=== PATIENT | female | born 1965 | race Caucasian/White ===

== ENCOUNTER → 2016-07-11 | Outpatient (CLI) | payer BC ==
--- NOTE | 2016-07-13 09:01 | MM ---
Reason for exam: screening (asymptomatic). Last mammogram was performed 1 year and 2 months ago. History: Family history of breast cancer in maternal grandmother at age 70. Physical Findings: Nurse did not find any significant physical abnormalities on exam. MG Screening Mammo w CAD Bilateral CC and MLO view(s) were taken. Prior study comparison: April 28, 2015, bilateral MG screening mammo w CAD. February 15, 2012, bilateral digital screening mammo w/CAD. The breast tissue is heterogeneously dense. This may lower the sensitivity of mammography. Stable calcifications in the right breast from 2014. No significant changes when compared with prior studies. ASSESSMENT: Benign, BI-RAD 2 RECOMMENDATION: Routine screening mammogram of both breasts in 1 year.
== END | disposition home or self-care (01) ==
LOC: RADMAMWWP 12:43
PROVIDERS: ATTEND Obstetrics & Gynecology
DX: Z12.31 Encounter for screening mammogram for malignant neoplasm of breast (principal); Z80.3 Family history of malignant neoplasm of breast

== ENCOUNTER → 2018-03-08 | Outpatient (CLI) | payer BC ==
--- NOTE | 2018-03-09 13:14 | MM ---
Reason for exam: screening (asymptomatic). Last mammogram was performed 1 year and 8 months ago. History: Family history of breast cancer in maternal grandmother at age 70. Physical Findings: A clinical breast exam by your physician is recommended on an annual basis and results should be correlated with mammographic findings. MG 3D Screening Mammo W/Cad Bilateral CC and MLO view(s) were taken. Prior study comparison: July 11, 2016, bilateral MG screening mammo w CAD. April 28, 2015, bilateral MG screening mammo w CAD. The breast tissue is heterogeneously dense. This may lower the sensitivity of mammography. There are stable scattered calcifications. There is no discrete abnormality. No significant changes when compared with prior studies. ASSESSMENT: Benign, BI-RAD 2 RECOMMENDATION: Routine screening mammogram of both breasts in 1 year.
== END | disposition home or self-care (01) ==
LOC: RADMAMWWP 10:58
PROVIDERS: ATTEND Obstetrics & Gynecology
DX: Z12.31 Encounter for screening mammogram for malignant neoplasm of breast (principal); Z80.3 Family history of malignant neoplasm of breast
CPT/HCPCS: 77063; 77067

== ENCOUNTER → 2019-05-21 | Outpatient (CLI) | payer BC ==
--- NOTE | 2019-05-23 10:17 | MM ---
Reason for exam: screening (asymptomatic). Last mammogram was performed 1 year and 2 months ago. History: Patient is postmenopausal. Family history of breast cancer in maternal grandmother at age 70. Taking estrogen for 3 months beginning at age 53. Taking progesterone for 3 months beginning at age 53. Physical Findings: A clinical breast exam by your physician is recommended on an annual basis and results should be correlated with mammographic findings. MG 3D Screening Mammo W/Cad Bilateral CC and MLO view(s) were taken. XCCL view(s) were taken of the right breast. Prior study comparison: March 08, 2018, bilateral MG 3d screening mammo w/cad. July 11, 2016, bilateral MG screening mammo w CAD. The breast tissue is heterogeneously dense. This may lower the sensitivity of mammography. No significant changes when compared with prior studies. ASSESSMENT: Benign, BI-RAD 2 RECOMMENDATION: Routine screening mammogram of both breasts in 1 year.
== END | disposition home or self-care (01) ==
LOC: RADMAMWWP 08:36
PROVIDERS: ATTEND Obstetrics & Gynecology
DX: Z12.31 Encounter for screening mammogram for malignant neoplasm of breast (principal); Z80.3 Family history of malignant neoplasm of breast
CPT/HCPCS: 77063; 77067

== ENCOUNTER 2020-03-03 16:26 | Emergency (ER) | payer BC ==
[2020-03-03 16:35] VITALS: TEMP 98
[2020-03-03] MEDS ORDERED: ONDANSETRON 4 MG/2 ML VIAL IVP STA (16:48)
[2020-03-03] MEDS ORDERED: diphenhydrAMINE 50 MG/ML 1 ML VIAL IVP STA (16:48)
[2020-03-03] MEDS ORDERED: KETOROLAC 15 MG/ML 1 ML VIAL IVP STA (16:48)
[2020-03-03] MEDS ORDERED: SODIUM CHLORIDE 0.9% 1,000 ML IV STA (16:48)
--- NOTE | 2020-03-03 16:50 | ED ---
General Adult HPI - General Chief complaint: Headache Stated complaint: Headache Time Seen by Provider: 03/03/20 16:43 Source: EMS Mode of arrival: EMS Limitations: no limitations - History of Present Illness Initial comments: Dictation was produced using tydy dictation software. please excuse any grammatical, word or spelling errors. This patient was cared for during a federal and state declared state of emergency secondary to Covid 19 Chief Complaint: 54-year-old female presents with headache History of Present Illness: Patient's 54-year-old female patient presents with an occipital headache. She states the pain is severe. She states pain acute in onset. She reports it is a worsening of her life. She states she is sensitive to light and sound. Patient denies any history of headaches. Denies any numbness signaling or weakness to the extremities. Denies any vision loss. The ROS documented in this emergency department record has been reviewed and confirmed by me. Those systems with pertinent positive or negative responses have been documented in the HPI. All other systems are other negative and/or noncontributory. PHYSICAL EXAM: General Impression: Alert and oriented x3, acute distress secondary to pain HEENT: Normocephalic atraumatic, extra-ocular movements intact, pupils equal and reactive to light bilaterally, mucous membranes moist. Cardiovascular: Heart regular rate and rhythm Chest: Able to complete full sentences, no retractions, no tachypnea Abdomen: abdomen soft, non-tender, non-distended, no organomegaly Musculoskeletal: Pulses present and equal in all extremities, no peripheral edema Motor: no focal deficits noted Neurological: CN II-XII grossly intact, no focal motor or sensory deficits noted Skin: Intact with no visualized rashes Psych: Normal affect and mood ED course: 54-year-old female presents with headache. Vital signs upon arrival are within acceptable limits. Patient is onset of symptoms. Approximate 45 minutes prior to arrival while she was at work. She does report that her pain is occipital. Computed tomography scan of brain is unremarkable. Patient given headache cocktail and observed in emergency department patient patient reevaluated after couple hours with significant improvement of symptoms. Patient is agreeable for discharge. - Related Data Home Medications Medication Instructions Recorded Confirmed No Known Home Medications 06/06/14 06/06/14 Allergies Allergy/AdvReac Type Severity Reaction Status Date / Time No Known Allergies Allergy Verified 01/23/15 11:33 Review of Systems ROS Statement: Those systems with pertinent positive or pertinent negative responses have been documented in the HPI. ROS Other: All systems not noted in ROS Statement are negative. Past Medical History Past Medical History: Thyroid Disorder History of Any Multi-Drug Resistant Organisms: None Reported Additional Past Surgical History / Comment(s): UTERINE ABLATION, D+C Past Psychological History: No Psychological Hx Reported Smoking Status: Never smoker Past Alcohol Use History: Occasional Past Drug Use History: None Reported General Exam Limitations: no limitations Course Vital Signs 03/03/20 03/03/20 16:31 17:56 Temperature 98.0 F Pulse Rate 62 68 Respiratory 18 18 Rate Blood Pressure 160/77 123/80 O2 Sat by Pulse 98 98 Oximetry Disposition Clinical Impression: Headache Disposition: HOME SELF-CARE Condition: Good Instructions (If sedation given, give patient instructions): Acute Headache (ED) Is patient prescribed a controlled substance at d/c from ED?: No Referrals: Roldan Rosa DO [Primary Care Provider] - 1-2 days Time of Disposition: 18:57
--- NOTE | 2020-03-03 17:14 | CT ---
EXAMINATION TYPE: CT brain wo con DATE OF EXAM: 03/03/2020 COMPARISON: None available. HISTORY: Headache CT DLP: 1099.4 mGycm Automated exposure control for dose reduction was used. FINDINGS: There is no intracranial hemorrhage, mass effect, midline shift or hydrocephalus. The ro-white diff erentiation is maintained. No calvarial fracture. The paranasal sinuses and mastoid air cells are fariba quately aerated. IMPRESSION: NORMAL HEAD CT.
[2020-03-03] MEDS ORDERED: DEXAMETHASONE SOD PHOSPHATE 10 MG/ML 1 ML VIAL IV STA (17:41)
[2020-03-03 18:58] VITALS: BP 132/74; PULSE 86; RESP 16
== END 2020-03-03 19:05 | disposition home or self-care (01) ==
LOC: EC 16:26
DX: R51.9 Headache, unspecified (principal)
CPT/HCPCS: 99284 ×2; 96374 ×2; 96375 ×4; 96361 ×2; 70450; J1200; J1100; J2405; J1885

== ENCOUNTER 2020-10-02 15:34 | Emergency (ER) | payer BC ==
[2020-10-02 16:34] VITALS: RESP 18; TEMP 97.8
[2020-10-02] MEDS ORDERED: MORPHINE SULFATE 4 MG/ML SYRINGE IV STA (18:05)
[2020-10-02] MEDS ORDERED: SODIUM CHLORIDE 0.9% 500 ML 500 ML IV STA (18:05)
[2020-10-02] MEDS ORDERED: MAG HYDROX/AL HYDROX/SIMETH 30 ML, HYOSCYAMINE ELIXIR 10 ML, LIDOCAINE VISCOUS 2% 10 ML PO STA ×3 (18:06)
[2020-10-02] MEDS ORDERED: PANTOPRAZOLE 40 MG/10 ML VIAL IVP STA (18:06)
--- NOTE | 2020-10-02 18:34 | ED ---
General Adult HPI - General Chief complaint: Chest Pain Stated complaint: SOB Time Seen by Provider: 10/02/20 17:59 Source: patient, RN notes reviewed, old records reviewed Mode of arrival: ambulatory Limitations: no limitations - History of Present Illness Initial comments: 54-year-old female presents for reevaluation of central chest pain. Patient was seen at outside hospital earlier this week, she had workup and was informed that this was related to likely gastric reflux. She was started on omeprazole at that time. She continues to have symptoms today. She describes this as a squeezing sensation lasting about 15 seconds, making every 5 minutes. No associated diaphoresis. No previous history of CAD. No vomiting. She states this is worse with lying flat and improved by sitting up. - Related Data Home Medications Medication Instructions Recorded Confirmed Mag Carb/Aluminum Hydrox/Algin 10 - 20 ml PO HS 10/02/20 10/02/20 [Gaviscon Liquid] Omeprazole 20 mg PO BID 10/02/20 10/02/20 Progesterone, Micronized 200 mg PO DAILY 10/02/20 10/02/20 [Progesterone] Thyroid,Pork [Magnetic Prospecting Supervisor Thyroid] 90 mg PO DAILY 10/02/20 10/02/20 estradioL [estradioL (Twice 1 patch TRANSDERM Q3D 10/02/20 10/02/20 Weekly) 0.1 mg Patch] Allergies Allergy/AdvReac Type Severity Reaction Status Date / Time No Known Allergies Allergy Verified 10/02/20 20:14 Review of Systems ROS Statement: Those systems with pertinent positive or pertinent negative responses have been documented in the HPI. ROS Other: All systems not noted in ROS Statement are negative. Past Medical History Past Medical History: Thyroid Disorder History of Any Multi-Drug Resistant Organisms: None Reported Additional Past Surgical History / Comment(s): UTERINE ABLATION, D+C Past Psychological History: No Psychological Hx Reported Smoking Status: Never smoker Past Alcohol Use History: Occasional Past Drug Use History: None Reported General Exam Limitations: no limitations General appearance: alert, in no apparent distress Head exam: Present: atraumatic, normocephalic Eye exam: Present: normal appearance, PERRL ENT exam: Present: normal exam Neck exam: Present: normal inspection. Absent: tenderness, meningismus Respiratory exam: Present: normal lung sounds bilaterally. Absent: respiratory distress, wheezes Cardiovascular Exam: Present: regular rate, normal rhythm GI/Abdominal exam: Present: soft. Absent: distended, tenderness, guarding Extremities exam: Present: normal inspection, normal capillary refill. Absent: pedal edema, calf tenderness Neurological exam: Present: alert, oriented X3, CN II-XII intact. Absent: motor sensory deficit Psychiatric exam: Present: normal affect, normal mood Skin exam: Present: warm, dry, intact, cyanosis, diaphoretic Course Vital Signs 10/02/20 10/02/20 16:29 20:21 Temperature 97.8 F Pulse Rate 56 L 70 Respiratory 18 18 Rate Blood Pressure 134/81 109/77 O2 Sat by Pulse 97 95 Oximetry EKG Findings - EKG Comments: EKG Findings:: EKG: Sinus bradycardia with sinus arrhythmia, left atrial enlargement, rate of 56, ND interval 166, QRS duration 96, QTC [address] segment elevation Medical Decision Making - Medical Decision Making 54-year-old female, repeat visit for chest pain. EKG is sinus rhythm without ST segment elevation. There does appear to be a component of reflux given the history. Possible esophageal spasm. She had normal x-ray performed at [facility] emergency department. She has a normal CBC, CMP showing a mild hypokalemia at 11.2, negative troponin. She has a low TSH, normal T3 and T4. I did plan to place this patient observation for serial cardiac enzymes, telemetry, cardiology and gastroenterology consultation. Patient states she is certain this is not her heart and has an outpatient follow-up with gastroenterology on [facility] is less than one week away. She's given strict return parameters. Patient eager for discharge. - Lab Data Result diagrams: 10/02/20 18:29 10/02/20 18:29 Lab Results 10/02/20 10/02/20 10/02/20 Range/Units 18:29 18:29 18:29 WBC 8.7 (3.8-10.6) k/uL RBC 4.98 (3.80-5.40) m/uL Hgb 14.6 (11.4-16.0) gm/dL Hct 42.8 (34.0-46.0) % MCV 86.0 (80.0-100.0) fL MCH 29.4 (25.0-35.0) pg MCHC 34.2 (31.0-37.0) g/dL RDW 12.4 (11.5-15.5) % Plt Count 285 (150-450) k/uL MPV 7.0 Neutrophils % 55 % Lymphocytes % 35 % Monocytes % 6 % Eosinophils % 2 % Basophils % 1 % Neutrophils # 4.8 (1.3-7.7) k/uL Lymphocytes # 3.1 (1.0-4.8) k/uL Monocytes # 0.6 (0-1.0) k/uL Eosinophils # 0.2 (0-0.7) k/uL Basophils # 0.0 (0-0.2) k/uL PT 10.3 (9.0-12.0) sec INR 1.0 (<1.2) APTT 22.2 (22.0-30.0) sec Sodium 140 (137-145) mmol/L Potassium 4.5 (3.5-5.1) mmol/L Chloride 107 (98-107) mmol/L Carbon Dioxide 27 (22-30) mmol/L Anion Gap 6 mmol/L BUN 21 H (7-17) mg/dL Creatinine 0.80 (0.52-1.04) mg/dL Est GFR (CKD-EPI)AfAm >90 (>60 ml/min/1.73 sqM) Est GFR (CKD-EPI)NonAf 85 (>60 ml/min/1.73 sqM) Glucose 87 (74-99) mg/dL Calcium 11.2 H (8.4-10.2) mg/dL Magnesium 2.1 (1.6-2.3) mg/dL Total Bilirubin 1.1 (0.2-1.3) mg/dL AST 27 (14-36) U/L ALT 31 (4-34) U/L Alkaline Phosphatase 89 (38-126) U/L Troponin I (0.000-0.034) ng/mL NT-Pro-B Natriuret Pep pg/mL Total Protein 7.5 (6.3-8.2) g/dL Albumin 4.7 (3.5-5.0) g/dL Lipase 95 (23-300) U/L TSH 0.150 L (0.465-4.680) mIU/L Free T4 (0.78-2.19) ng/dL Free T3 pg/mL (2.8-5.3) pg/ml 10/02/20 10/02/20 10/02/20 Range/Units 18:29 18:29 18:29 WBC (3.8-10.6) k/uL RBC (3.80-5.40) m/uL Hgb (11.4-16.0) gm/dL Hct (34.0-46.0) % MCV (80.0-100.0) fL MCH (25.0-35.0) pg MCHC (31.0-37.0) g/dL RDW (11.5-15.5) % Plt Count (150-450) k/uL MPV Neutrophils % % Lymphocytes % % Monocytes % % Eosinophils % % Basophils % % Neutrophils # (1.3-7.7) k/uL Lymphocytes # (1.0-4.8) k/uL Monocytes # (0-1.0) k/uL Eosinophils # (0-0.7) k/uL Basophils # (0-0.2) k/uL PT (9.0-12.0) sec INR (<1.2) APTT (22.0-30.0) sec Sodium (137-145) mmol/L Potassium (3.5-5.1) mmol/L Chloride (98-107) mmol/L Carbon Dioxide (22-30) mmol/L Anion Gap mmol/L BUN (7-17) mg/dL Creatinine (0.52-1.04) mg/dL Est GFR (CKD-EPI)AfAm (>60 ml/min/1.73 sqM) Est GFR (CKD-EPI)NonAf (>60 ml/min/1.73 sqM) Glucose (74-99) mg/dL Calcium (8.4-10.2) mg/dL Magnesium (1.6-2.3) mg/dL Total Bilirubin (0.2-1.3) mg/dL AST (14-36) U/L ALT (4-34) U/L Alkaline Phosphatase (38-126) U/L Troponin I <0.012 (0.000-0.034) ng/mL NT-Pro-B Natriuret Pep 36 pg/mL Total Protein (6.3-8.2) g/dL Albumin (3.5-5.0) g/dL Lipase (23-300) U/L TSH (0.465-4.680) mIU/L Free T4 0.97 (0.78-2.19) ng/dL Free T3 pg/mL 4.4 (2.8-5.3) pg/ml Disposition Clinical Impression: Chest pain Disposition: HOME SELF-CARE Condition: Good Instructions (If sedation given, give patient instructions): Chest Pain (ED) Is patient prescribed a controlled substance at d/c from ED?: No Referrals: Roldan Rosa DO [Primary Care Provider] - 1-2 days Lenore Benitez MD [STAFF PHYSICIAN] - 1-2 days Cris Acuna MD [STAFF PHYSICIAN] - 1-2 days Time of Disposition: 21:03
[2020-10-02 18:39] LABS: Basophils % (A) 1 %; Eosinophils # (A) 0.2 k/uL (0-0.7); Eosinophils % (A) 2 %; HCT 42.8 % (34.0-46.0); HGB 14.6 gm/dL (11.4-16.0); Lymphocytes # (A) 3.1 k/uL (1.0-4.8); Lymphocytes % (A) 35 %; MCH 29.4 pg (25.0-35.0); MCHC 34.2 g/dL (31.0-37.0); Monocytes # (A) 0.6 k/uL (0-1.0); Monocytes % (A) 6 %; Neutrophils # (A) 4.8 k/uL (1.3-7.7); Neutrophils % (A) 55 %; Platelet Count 285 k/uL (150-450); RBC 4.98 m/uL (3.80-5.40); RDW 12.4 % (11.5-15.5); WBC 8.7 k/uL (3.8-10.6)
[2020-10-02 18:47] LABS: Potassium 4.5 mmol/L (3.5-5.1)
[2020-10-02 18:48] LABS: ALT 31 U/L (4-34); AST 27 U/L (14-36); African American GFR (CKD) >90 (>60 ml/min/1.73 sqM); Albumin 4.7 g/dL (3.5-5.0); Alkaline Phosphatase 89 U/L (38-126); Anion Gap 6 mmol/L; Blood Urea Nitrogen 21 mg/dL (7-17); Calcium 11.2 mg/dL (8.4-10.2); Carbon Dioxide 27 mmol/L (22-30); Chloride 107 mmol/L (98-107); Glucose 87 mg/dL (74-99); Lipase 95 U/L (23-300); Magnesium 2.1 mg/dL (1.6-2.3); Non-African American GFR(CKD) 85 (>60 ml/min/1.73 sqM); Sodium 140 mmol/L (137-145); Total Bilirubin 1.1 mg/dL (0.2-1.3); Total Protein 7.5 g/dL (6.3-8.2)
[2020-10-02 19:08] LABS: Partial Thromboplastin Time 22.2 sec (22.0-30.0); Prothrombin Time 10.3 sec (9.0-12.0)
[2020-10-02 20:39] LABS: T4, Free (Free Thyroxine) 0.97 ng/dL (0.78-2.19)
[2020-10-02 21:21] VITALS: BP 122/57; PULSE 71
== END 2020-10-02 21:24 | disposition home or self-care (01) ==
LOC: EC 15:34
DX: R07.9 Chest pain, unspecified (principal)
CPT/HCPCS: 36415; 93005; 84439; 84481; 83880; 80053; 83690; 83735; 84443; 84484; 85025; 85610; 85730; 99285; 96374; 96361 ×3; C9113

== ENCOUNTER → 2020-12-21 | Outpatient (CLI) | payer BC ==
--- NOTE | 2020-12-23 10:03 | MM ---
Reason for exam: screening (asymptomatic). Last mammogram was performed 1 year and 7 months ago. History: Patient is postmenopausal. Family history of breast cancer in maternal grandmother at age 70. Took estrogen for 3 months beginning at age 53. Took progesterone for 3 months beginning at age 53. Physical Findings: A clinical breast exam by your physician is recommended on an annual basis and results should be correlated with mammographic findings. MG 3D Screening Mammo W/Cad Bilateral CC and MLO view(s) were taken. Prior study comparison: May 21, 2019, bilateral MG 3d screening mammo w/cad. March 08, 2018, bilateral MG 3d screening mammo w/cad. April 28, 2015, bilateral MG screening mammo w CAD. The breast tissue is heterogeneously dense. This may lower the sensitivity of mammography. Finding: There are intermediate concern, suspicious grouped/clustered calcifications in the lower outer quadrant, posterior position of the right breast 9cm from the nipple. New finding since May 21, 2019, March 08, 2018, and April 28, 2015. ASSESSMENT: Incomplete: need additional imaging evaluation, BI-RAD 0 RECOMMENDATION: Special view mammogram of the right breast. [facility] will attempt to contact patient to return for supplemental views.
== END | disposition home or self-care (01) ==
LOC: RADMAMWWP 14:50
PROVIDERS: ATTEND Obstetrics & Gynecology
DX: Z12.31 Encounter for screening mammogram for malignant neoplasm of breast (principal); Z78.0 Asymptomatic menopausal state; Z80.3 Family history of malignant neoplasm of breast
CPT/HCPCS: 77063; 77067

== ENCOUNTER → 2020-12-30 | Outpatient (CLI) | payer BC ==
--- NOTE | 2020-12-31 08:57 | MM ---
Reason for exam: additional evaluation requested from abnormal screening. Last mammogram was performed less than 1 month ago. History: Patient is postmenopausal. Family history of breast cancer in maternal grandmother at age 70. Took estrogen for 3 months beginning at age 53. Took progesterone for 3 months beginning at age 53. Physical Findings: Nurse did not find any significant physical abnormalities on exam. MG 3D Work Up W/Cad RT CC with magnification, LM with magnification, and LM view(s) were taken of the right breast. Prior study comparison: December 21, 2020, bilateral MG 3d screening mammo w/cad. May 21, 2019, bilateral MG 3d screening mammo w/cad. Increasing indeterminate calcifications upper outer right breast. Tissue biospy recommended. This finding is changed when compared with previous exams. These results were verbally communicated with the patient and result sheet given to the patient on 12/30/20. ASSESSMENT: Suspicious, BI-RAD 4 RECOMMENDATION: Stereotactic core biopsy of the right breast. Called Dr. Goodrich's office with mammographic findings and has scheduled an appointment for the patient for 01/21/21 at 11:[address] Crouch. Biopsy scheduled for 01/01/21 at 8:00. PRELIMINARY REPORT CALLED AND FAXED TO DR. CROUCH ON 12/31/20.
== END | disposition home or self-care (01) ==
LOC: RADMAMWWP 10:25
PROVIDERS: ATTEND Obstetrics & Gynecology
DX: R92.1 Mammographic calcification found on diagnostic imaging of breast (principal); Z78.0 Asymptomatic menopausal state; Z80.3 Family history of malignant neoplasm of breast
CPT/HCPCS: 77061; 77065

== ENCOUNTER → 2021-01-01 | Day surgery (SDC) | payer BC ==
[2021-01-01 07:36] VITALS: RESP 16; TEMP 98
[2021-01-01 08:43] VITALS: BP 127/80; PULSE 58
--- NOTE | 2021-01-01 09:21 | MM ---
EXAMINATION TYPE: MG stereo VAD BX RT DATE OF EXAM: 01/01/2021 COMPARISON: Prior mammogram December 30, 2020 study CLINICAL HISTORY: Abnormal mammogram, suspicious microcalcifications TECHNIQUE: Stereotactic guided core biopsy of right breast. FINDINGS: The procedure of stereotactic guided core biopsy was explained to the patient. Benefits, alternatives, and risks were discussed. An informed consent was then obtained. [facility] Shortness pathway was lateral approach. I performed the localization and then performed the remainder of the procedure. Overlying skin is cleansed with Betadine. Lidocaine is used as anesthetic into the skin and deep tissues. Lidocaine with epinephrine is used as anesthetic into deeper tissue. A vacuum assisted biopsy gun was used to obtain multiple core samples. The patient tolerated the procedure well without any immediate complication. The patient was kept in the radiology department for short stay after the procedure and then discharged home in stable condition. Targeted calcifications are identified in specimen mammogram. Post biopsy mammogram shows the clip to appear in satisfactory position relative to the targeted area of concern on the preprocedure images. IMPRESSION: SUCCESSFUL, UNCOMPLICATED STEREOTACTIC GUIDED CORE BIOPSY OF AREA OF CONCERN IN THE RIGHT BREAST, FULL PATHOLOGY RESULTS TO FOLLOW. Low to intermediate index of suspicion noted at time of procedure. Pathology Results: High Risk RIGHT BREAST, STEREOTACTIC CORE BIOPSY: Focal flat epithelial atypia and atypical ductal hyperplasia (FEA/ADH) in a background of fibrocystic changes including calcifications and calcium oxalate crystals. See note. Recommendation Surgical consult of the right breast. BAILEY
== END ==
LOC: RADMAMWWP 07:07
PROVIDERS: ATTEND Surgery
DX: R92.8 Other abnormal and inconclusive findings on diagnostic imaging of breast (principal); R92.1 Mammographic calcification found on diagnostic imaging of breast
CPT/HCPCS: 19081; 88305; 88342; A4648; J2001

== ENCOUNTER 2021-02-04 11:07 | Day surgery (SDC) | payer BC ==
[2021-02-03 11:35] VITALS: BMI 28.2
[~2021-02-04 11:07] MED LIST: ACETAMINOPHEN TAB 500 MG TAB PO PRN; HEPARIN SODIUM,PORCINE/PF 5,000 UNIT/0.5 ML SYRINGE SQ PRN; Pre Op ABX Message 1 EACH MISC MISCELLANE ONE
[2021-02-04] MEDS ORDERED: LIDOCAINE 1% (10MG/ML) FOR IV START INTRADERMA ONE (11:35)
[2021-02-04] MEDS ORDERED: LACTATED RINGERS 1,000 ML IV ONE (11:40)
[2021-02-04] MEDS ORDERED: ALPRAZolam 0.5 MG TAB ONE (11:53)
[2021-02-04 12:11] VITALS: TEMP 98
[2021-02-04] MEDS ORDERED: LIDOCAINE 1% INJ 10MG/ML (20 ML MDV) SQ ONE (12:16)
[2021-02-04] MEDS ORDERED: ONDANSETRON 4 MG/2 ML VIAL ONE (13:19)
[2021-02-04] MEDS ORDERED: DEXAMETHASONE SOD PHOSPHATE 4 MG/ML 1 ML VIAL IVP ONE (13:23)
[2021-02-04] MEDS ORDERED: MIDAZOLAM 2 MG/2 ML VIAL ONE (14:02)
[2021-02-04] MEDS ORDERED: PROPOFOL 10 MG/ML 20 ML VIAL IV ONE (14:02)
[2021-02-04] MEDS ORDERED: fentaNYL (PF) 50 MCG/ML 2 ML AMP ONE (14:02)
[2021-02-04] MEDS ORDERED: KETAMINE 10 MG/ML 20 ML VIAL ONE (14:02)
[2021-02-04] MEDS ORDERED: SODIUM CHLORIDE 0.9% 100 ML with ceFAZolin 2,000 MG IV ONE ×2 (14:23)
[2021-02-04] MEDS ORDERED: BUPIVACAIN-EPI 0.25%-1:200,000 30 ML VIAL SQ ONE ×2 (14:24)
[2021-02-04] MEDS ORDERED: NALOXONE 0.4 MG/ML 1 ML VIAL IV PRN (15:12)
[2021-02-04] MEDS ORDERED: traMADol 50 MG TAB PO PRN (15:12)
--- NOTE | 2021-02-04 15:16 | P.OP ---
Date of Procedure: 02/04/21 Procedure(s) Performed: PREOPERATIVE DIAGNOSIS: Abnormal right mammogram POSTOPERATIVE DIAGNOSIS: Same PROCEDURE: Right Breast wire localization biopsy SURGEON: Miko EBL: Minimal ANESTHESIA: Sedation plus local COMPLICATIONS: None OPERATIVE PROCEDURE: Patient was placed on the operating room table in the s upine position. The patient's breast was prepped and draped in usual sterile fashion. A curvilinear incision was made adjacent to the wire entrance site. I followed the wire down into the breast tissue. The tip of the wire was quite a distance beyond the clip. The breast tissue around the wire was excised and I approached the wire beyond where I believed the clip was present. The tissue beyond our specimen was a little bit indurated and for that reason I took an additional small portion of tissue there. A specimen radiograph was performed on this area after it was painted the appropriate colors. The new piece was also painted the appropriate colors. The specimen radiograph confirmed the clip to be in what appeared to represent the smaller more medial portion. The subcutaneous tissues were inspected. No bleeding was seen. The subcutaneous tissues were closed using 3-0 Vicryl sutures. The skin was closed using a running 4-0 Monocryl stitch. Skin glue and sterile dressings were applied. DISPOSITION: Stable to recovery room
[2021-02-04] MEDS ORDERED: traMADol 50 MG TAB PO ONE (16:05)
[2021-02-04 16:40] VITALS: BP 119/71; PULSE 56; RESP 18
--- NOTE | 2021-02-05 14:25 | MM ---
EXAMINATION TYPE: MG surgical specimen RT, MG pre op needle loc RT DATE OF EXAM: 02/04/2021 COMPARISON: Mammogram 01/01/2021, 12/30/2020 HISTORY: Abnormal breast biopsy, abnormal mammogram, high risk lesion PROCEDURE: Maximal barrier technique is utilized. The skin overlying a suitable path to the patient's indwellin g clip marker in the upper outer right breast was localized using x-ray guidance. The skin was prep ped and Lidocaine used for local anesthesia. A 20-gauge needle was advanced to the level of the mass using x-ray guidance and a wire deployed. Needle was removed and hemostasis achieved. The patient remained in stable condition. Image obtained verified placement of the wire. Post procedural specimen radiograph shows the clip and the wire to be present. IMPRESSION: Successful x-ray guided wire localization of this patient's breast biopsy clip. This pr ocedure performed by the undersigned.
== END 2021-02-04 16:41 | disposition home or self-care (01) ==
LOC: OR 11:07
PROVIDERS: ATTEND Surgery
DX: N60.91 Unspecified benign mammary dysplasia of right breast (principal); E07.9 Disorder of thyroid, unspecified; K21.9 Gastro-esophageal reflux disease without esophagitis; Z79.890 Hormone replacement therapy; Z79.899 Other long term (current) drug therapy; Z79.01 Long term (current) use of anticoagulants; Z86.718 Personal history of other venous thrombosis and embolism
CPT/HCPCS: 19125; 81025; 76098; 19281; C1819; J2250; J1100; J2405; J0690; J2001; J3010; J2704; J1644; 88307

== ENCOUNTER → 2021-08-09 | Outpatient (CLI) | payer BC ==
--- NOTE | 2021-08-10 08:36 | MM ---
Reason for exam: follow-up at short interval from prior study. Last mammogram was performed 7 months ago. History: Patient is postmenopausal and has history of high-risk lesion on a previous biopsy at age 55. Family history of breast cancer in maternal grandmother at age 70. MG pre op needle loc RT of the right breast, February 04, 2021. High risk MG stereo VAD BX RT of the right breast, January 01, 2021. Took estrogen for 3 months beginning at age 53. Took progesterone for 3 months beginning at age 53. Physical Findings: A clinical breast exam by your physician is recommended on an annual basis and results should be correlated with mammographic findings. MG 3D Diag Mammo W/Cad RT CC, MLO, XCCL, LM, CC with magnification, LM with magnification, and ML with magnification view(s) were taken of the right breast. Prior study comparison: December 30, 2020, right breast MG 3d work up w/cad RT. December 21, 2020, bilateral MG 3d screening mammo w/cad. The breast tissue is heterogeneously dense. This may lower the sensitivity of mammography. Post excisional changes. 11-12 o'clock anterior right calcifications increased, biopsy recommended. Far posterior and lateral grouped calcifications also suspicious on magnification CC and XCCL views. On XCCL 3D, they are inferior to the clips 9 o'clock on the magnification ML view. ASSESSMENT: Suspicious, BI-RAD 4 RECOMMENDATION: Stereotactic core biopsy of the right breast. (2 site) Called Dr. Crouch's office with mammographic findings. 3D biospy required, Dr. Crouch's office notified and will contact [facility] to scheduled 3D biopsy. PRELIMINARY REPORT CALLED AND FAXED TO DR. CROUCH ON 08/10/21.
== END | disposition home or self-care (01) ==
LOC: RADMAMWWP 10:53
PROVIDERS: ATTEND Surgery
DX: R92.8 Other abnormal and inconclusive findings on diagnostic imaging of breast (principal); Z78.0 Asymptomatic menopausal state; Z80.3 Family history of malignant neoplasm of breast
CPT/HCPCS: 77061; 77065

== ENCOUNTER 2021-08-23 16:00 | Emergency (ER) | payer BC ==
[2021-08-23 16:12] VITALS: RESP 18; TEMP 97.6
[2021-08-23] MEDS ORDERED: SODIUM CHLORIDE 0.9% 500 ML 500 ML IV ONE (16:30)
[2021-08-23] MEDS ORDERED: HYDROmorphone 0.5 MG/0.5 ML SYRINGE IVP STA ×2 (16:30→19:09)
[2021-08-23] MEDS ORDERED: METOCLOPRAMIDE 5 MG/ML 2 ML VIAL IVP STA (16:31)
[2021-08-23] MEDS ORDERED: diphenhydrAMINE 50 MG/ML 1 ML VIAL IVP STA (16:31)
--- NOTE | 2021-08-23 17:05 | CT ---
EXAMINATION TYPE: CT brain wo con DATE OF EXAM: 08/23/2021 COMPARISON: 03/03/2020 HISTORY: Headache CT DLP: 1025.4 mGycm Automated exposure control for dose reduction was used. Ventricles and sulci appear normal. There is no mass effect or midline shift. There is no sign of int racranial hemorrhage. The calvarium is intact. There is normal aeration of the mastoid sinuses. There is no evidence of cerebral edema. IMPRESSION: Negative unenhanced head CT scan
--- NOTE | 2021-08-23 17:23 | ED ---
General Adult HPI - General Chief complaint: Headache Stated complaint: Headache Time Seen by Provider: 08/23/21 16:18 Source: patient, police, RN notes reviewed, old records reviewed Mode of arrival: ambulatory - History of Present Illness Initial comments: 55-year-old female presenting for evaluation of headache. Patient states she was on a web meeting and developed a right frontal headache. She does have history of migraine headaches and states is similar to headaches in the past although was more acute in onset. She reports photophobia. No focal numbness or weakness. No vomiting. Headache began about 2 hours prior to arrival. She does have previous headache history. - Related Data Home Medications Medication Instructions Recorded Confirmed Levothyroxine Sodium [Synthroid] 100 mcg PO DAILY 08/23/21 08/23/21 Promethazine HCl 12.5 mg PO BID PRN 08/23/21 08/23/21 oxyCODONE-APAP 5-325MG [Percocet 1 tab PO Q4HR PRN 08/23/21 08/23/21 5-325 mg] Allergies Allergy/AdvReac Type Severity Reaction Status Date / Time No Known Allergies Allergy Verified 08/23/21 16:12 Review of Systems ROS Statement: Those systems with pertinent positive or pertinent negative responses have been documented in the HPI. ROS Other: All systems not noted in ROS Statement are negative. 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 Past Anesthesia/Blood Transfusion Reactions: No Reported Reaction Past Psychological History: No Psychological Hx Reported Smoking Status: Never smoker Past Alcohol Use History: Occasional Past Drug Use History: None Reported - Past Family History Father Family Medical History: Deep Vein Thrombosis (DVT) General Exam General appearance: alert, in no apparent distress Head exam: Present: atraumatic, normocephalic Eye exam: Present: normal appearance, PERRL ENT exam: Present: normal exam Neck exam: Present: normal inspection. Absent: tenderness, meningismus Respiratory exam: Present: normal lung sounds bilaterally. Absent: respiratory distress, wheezes, rales Cardiovascular Exam: Present: regular rate, normal rhythm GI/Abdominal exam: Present: soft. Absent: distended, tenderness, guarding Extremities exam: Present: normal inspection, normal capillary refill Neurological exam: Present: alert, oriented X3, CN II-XII intact. Absent: motor sensory deficit Psychiatric exam: Present: normal affect, normal mood Skin exam: Present: warm, dry, intact. Absent: cyanosis, diaphoretic Course Vital Signs 08/23/21 08/23/21 08/23/21 16:09 16:51 17:50 Temperature 97.6 F Pulse Rate 52 L 67 62 Respiratory 18 18 18 Rate Blood Pressure 152/81 155/84 130/57 O2 Sat by Pulse 96 98 96 Oximetry - Reevaluation(s) Reevaluation #1: 08/23/21 21:13 Patient's headache significantly improved. Medical Decision Making - Medical Decision Making 55-year-old female presented with acute headache. Patient describes a right frontal headache with vision changes and photophobia. Head CT is ordered to rule out acute intracranial hemorrhage. This was obtained within 2-1/2 hours of headache onset. This was negative for intracranial hemorrhage or mass effect. I did obtain CT angiography to rule out subarachnoid hemorrhage, this is negative. Laboratory testing is unremarkable. Patient feeling better, given referral to primary care. Return parameters discussed. - Lab Data Result diagrams: 08/23/21 17:46 08/23/21 17:46 Lab Results 08/23/21 08/23/21 Range/Units 17:46 17:46 WBC 8.4 (3.8-10.6) k/uL RBC 5.26 (3.80-5.40) m/uL Hgb 15.0 (11.4-16.0) gm/dL Hct 46.9 H (34.0-46.0) % MCV 89.3 (80.0-100.0) fL MCH 28.5 (25.0-35.0) pg MCHC 31.9 (31.0-37.0) g/dL RDW 12.6 (11.5-15.5) % Plt Count 268 (150-450) k/uL MPV 7.9 Neutrophils % 64 % Lymphocytes % 25 % Monocytes % 7 % Eosinophils % 1 % Basophils % 1 % Neutrophils # 5.4 (1.3-7.7) k/uL Lymphocytes # 2.1 (1.0-4.8) k/uL Monocytes # 0.6 (0-1.0) k/uL Eosinophils # 0.1 (0-0.7) k/uL Basophils # 0.1 (0-0.2) k/uL Sodium 138 (137-145) mmol/L Potassium 4.4 (3.5-5.1) mmol/L Chloride 104 (98-107) mmol/L Carbon Dioxide 22 (22-30) mmol/L Anion Gap 12 mmol/L BUN 19 H (7-17) mg/dL Creatinine 0.86 (0.52-1.04) mg/dL Est GFR (CKD-EPI)AfAm 89 (>60 ml/min/1.73 sqM) Est GFR (CKD-EPI)NonAf 77 (>60 ml/min/1.73 sqM) Glucose 97 (74-99) mg/dL Calcium 9.6 (8.4-10.2) mg/dL Total Bilirubin 1.0 (0.2-1.3) mg/dL AST 33 (14-36) U/L ALT 41 H (4-34) U/L Alkaline Phosphatase 127 H (38-126) U/L Total Protein 7.8 (6.3-8.2) g/dL Albumin 4.6 (3.5-5.0) g/dL Disposition Clinical Impression: Headache Disposition: HOME SELF-CARE Condition: Good Instructions (If sedation given, give patient instructions): Acute Headache (ED) Is patient prescribed a controlled substance at d/c from ED?: No Referrals: None,Stated [Primary Care Provider] - 1-2 days Gibson Beltran MD [STAFF PHYSICIAN] - 1-2 days Alexy Elizabeth III, MD [STAFF PHYSICIAN] - 1-2 days Time of Disposition: 21:13
[2021-08-23 17:50] LABS: Basophils # (A) 0.1 k/uL (0-0.2); Basophils % (A) 1 %; Eosinophils # (A) 0.1 k/uL (0-0.7); Eosinophils % (A) 1 %; HCT 46.9 % (34.0-46.0); Lymphocytes # (A) 2.1 k/uL (1.0-4.8); Lymphocytes % (A) 25 %; MCH 28.5 pg (25.0-35.0); MCHC 31.9 g/dL (31.0-37.0); MCV 89.3 fL (80.0-100.0); Mean Platelet Volume 7.9; Monocytes # (A) 0.6 k/uL (0-1.0); Monocytes % (A) 7 %; Neutrophils # (A) 5.4 k/uL (1.3-7.7); Neutrophils % (A) 64 %; Platelet Count 268 k/uL (150-450); RBC 5.26 m/uL (3.80-5.40); RDW 12.6 % (11.5-15.5); WBC 8.4 k/uL (3.8-10.6)
[2021-08-23 18:04] LABS: Albumin 4.6 g/dL (3.5-5.0); Calcium 9.6 mg/dL (8.4-10.2); Potassium 4.4 mmol/L (3.5-5.1); Total Protein 7.8 g/dL (6.3-8.2)
[2021-08-23] MEDS ORDERED: KETOROLAC 15 MG/ML 1 ML VIAL IVP STA (19:09)
--- NOTE | 2021-08-23 21:16 | CT ---
EXAMINATION TYPE: CT angio COW [place] [employer] DATE OF EXAM: 08/23/2021 COMPARISON: None HISTORY: Headache. Recent removal of parathyroid. CT DLP: 788.8 mGycm Automated exposure control for dose reduction was used. CONTRAST: Performed with IV Contrast, patient injected with 100ml mL of Isovue 370. Images obtained from the skull base to the vertex of the brain without IV contrast. There are Three-D postprocessed images. There is arterial flow in the anterior middle and posterior cerebral arteries. There is arterial flow in both distal internal carotid arteries. There is arterial flow in the vertebrobasilar artery syste m. Flow seen in both distal vertebral arteries. There is no mass effect. No evidence of intracranial aneurysm or neovascularity. There is normal enha ncement of the venous sinuses. There is large right posterior communicating artery and right posterio r cerebral artery appears to fill both mostly through the posterior communicating artery. IMPRESSION: Negative CT angiogram of the brain.
[2021-08-23 21:27] VITALS: BP 128/70; PULSE 70
== END 2021-08-23 21:32 | disposition home or self-care (01) ==
LOC: EC 16:00
DX: R51.9 Headache, unspecified (principal); K21.9 Gastro-esophageal reflux disease without esophagitis; E07.9 Disorder of thyroid, unspecified; Z86.711 Personal history of pulmonary embolism
CPT/HCPCS: 99284; 96374; 96375 ×3; 96376; 36415; 80053; 85025; 70496; 70450; J1200; J2765; J1885; J1170; Q9967